=== PATIENT | male | born 1985 | race Caucasian/White ===

== ENCOUNTER 2018-10-09 16:18 | Emergency (ER) | payer OTHER ==
[~2018-10-09] VITALS: Ht 175.3 cm; Wt 86.5 kg
[~2018-10-09 16:18] MED LIST: CIPR500T4 PO
[2018-10-09 16:21] VITALS: Ht 175.3 cm; Wt 86.5 kg
[2018-10-09] MEDS ORDERED: SOD CHLORIDE 0.9% 1,000 ML IV STA (16:55)
[2018-10-09] MEDS ORDERED: CEFTRIAXONE 1 GM/50 ML (PMX) 50 ML IVPB ONE (18:00)
[2018-10-09 18:47] VITALS: BP 130/85; PULSE 86; RESP 17
== END 2018-10-09 18:47 | disposition home or self-care (01) ==
LOC: FTE 16:18
DX: N39.0 Urinary tract infection, site not specified (principal)
CPT/HCPCS: 36415; 80053; 81001; 82550; 85025; 96361; 96374; 99284; J0696; J7030